=== PATIENT | female | born 1960 | race Caucasian/White ===

== ENCOUNTER 2023-03-19 07:18 | Day surgery (SDC) | payer OTHER, SELFPAY ==
[2023-03-19 07:46] VITALS: BP 114/73; PULSE 65; RESP 17; TEMP 36.6; O2SAT 98; BMI 18.9
[2023-03-19] MEDS: LACTATED RINGERS 1,000 ML 200 ML IV (08:02)
--- NOTE | 2023-03-19 08:09 | PM.HP.1 ---
History of Present Illness History of Present Illness Date Patient Seen: 03/19/23 Time Patient Seen: 08:09 Chief complaint: Colonoscopy Narrative: The patient presents for colorectal screening. She is a personal history of colonic polyps. Last colonoscopy was 5 years ago and negative for polyps at that time.. No personal or family history of colon cancer. On further history denies any recent gastrointestinal symptoms. No nausea, vomiting, abdominal pain, loss of appetite, unexplained weight loss, change in bowel habits, or blood per rectum. [facility] Medical History (Updated 03/19/23 @ 08:10 by Leonid Fu MD) Hypothyroid Social History household members: spouse Smoking Status: Never smoker alcohol intake: never Meds Home Medications and Allergies Home Medications Medication Instructions Recorded Confirmed Type sodium,potassium,mag sulfates 17.5 See Rx Instructions PO .COMPLEX 02/12/23 Rx gram-3.13 gram-1.6 gram oral soln #354 mL (Suprep Bowel Prep Kit) Lactobacillus acidophilus 1,000 mmu cells PO DAILY 03/19/23 03/19/23 History ascorbic acid (vitamin C) 500 mg 250 mg PO DAILY 03/19/23 03/19/23 History tablet (Vitamin C) flaxseed oil 1,000 mg capsule 1,000 mg PO TID 03/19/23 03/19/23 History levothyroxine 75 mcg tablet 75 mcg PO DAILY 03/19/23 03/19/23 History (Synthroid) magnesium citrate 100 mg capsule 100 mg PO DAILY 03/19/23 03/19/23 History multivitamin,ta-avui-sndosemb tab 03/19/23 History psyllium husk 3.4 gram/5.4 gram 1 tsp PO DAILY 03/19/23 03/19/23 History oral powder (Metamucil) rosuvastatin 20 mg tablet 20 mg PO DAILY 03/19/23 03/19/23 History vitamins A,C,G-riit-hzrsuy 2,148 2 tab PO BID 03/19/23 03/19/23 History mcg-113 mg-45 mg-17.4 mg tablet (PreserVision AREDS) Allergies Allergy/AdvReac Type Severity Reaction Status Date / Time amoxicillin Allergy Intermediate Nausea Verified 03/19/23 07:40 Penicillins Allergy Intermediate Nausea Verified 03/19/23 07:40 Exam Vital Signs (past 8 hours): - 03/19/23 07:46 Temperature 97.8 F Pulse Rate 65 Respiratory Rate 17 Blood Pressure 114/73 Pulse Oximetry 98 Oxygen Delivery Method Room Air Oxygen Delivery Method Room Air Narrative Exam Narrative: General adult woman alert oriented no acute distress Assessment & Plan Assessment and plan (1) Personal history of colonic polyps: Status: Acute Assessment & Plan narrative: The patient requires colorectal screening and colonoscopy is recommended. Technical details were discussed. Risks, benefits, alternatives explained. Risks including but not limited to myocardial infarction, aspiration, bleeding, pain, missed lesion, incomplete examination, need for further radiographic studies, colonic perforation, and need for major abdominal surgery were discussed. All questions were answered to their satisfaction, and they are in agreement with this plan.
[2023-03-19 09:15] VITALS: BP 102/62; PULSE 69; RESP 19; TEMP 36.6; O2SAT 100
--- NOTE | 2023-03-19 09:19 | PM.OP.COLON ---
Operative Date/Time/Diagnoses Date of procedure: 03/19/23 Time of procedure: 09:19 Pre-op diagnosis: Personal history of colonic polyps Post-op diagnosis: same Procedure & Clinicians Study performed: Colonoscopy Same procedure as scheduled: Yes Indications: Personal history of colonic polyps. Colorectal screening. Surgeon: Leonid Fu Procedure Notes Procedure in detail: The history and physical was performed/updated and the patient is ASA class is 2. The procedure was discussed in detail with the patient. Potential risks complications including infection, bleeding, missed diagnosis, perforation, need for surgery, and were explained. Their questions were answered and informed consent was obtained. Patient was brought to the procedure room and placed standard monitoring equipment. The patient's vital signs were monitored continuously throughout the entire procedure. Prior to starting time-out was performed. The patient was placed in the left lateral recumbent position. Procedural sedation was administered by anesthesia. Examination began with a thorough inspection of the perianal area there was no evidence of fissures, fistulae, external hemorrhoids or cutaneous malignancy. The colonoscopy scope was then placed into the anal canal and was advanced to the cecum, which was identified by the ileocecal valve, the appendiceal orifice and the confluence of the taenia. The scope was then slowly withdrawn examining colon thoroughly in all directions, irrigating it of any residual stool. Colon was largely unremarkable. No masses or polyps were identified. The colon was notable only for tortuosity in the proximal colon requiring scope stiffener and manual external compression. The patient tolerated the procedure well. They will be discharged once criteria are met. The prep was of good/excellent quality. The withdrawl time was 6 minutes. Specimen(s): none sent Impression: Normal colonoscopy Post-procedure Recommendations: Colonoscopy in 10 years Disposition: same day surgery
[2023-03-19 09:21] VITALS: BP 106/59; PULSE 67; RESP 17; TEMP 36.6; O2SAT 100
[2023-03-19 09:25] VITALS: BP 105/65; PULSE 64; RESP 15; TEMP 36.6; O2SAT 100
[2023-03-19 09:36] VITALS: BP 128/85; PULSE 78; RESP 12; TEMP 36.6; O2SAT 96
== END 2023-03-19 09:54 | disposition home or self-care (01) ==
PROVIDERS: PCP Physician Assistant Medical; Referring Provider Surgery; Visit Provider Surgery
PROC: 0DJD8ZZ Inspection of Lower Intestinal Tract, Via Natural or Artificial Opening Endoscopic (ICD-10-PCS; CPT 45378; principal; 2023-03-19 08:45)
DX: Z12.11 Encounter for screening for malignant neoplasm of colon (principal); Z86.010 Personal history of colon polyps
CPT/HCPCS: 45378; J2250; J3010

== ENCOUNTER → 2025-04-07 09:04 | Outpatient (CLI) | payer MEDICARE, OTHER, SELFPAY ==
--- NOTE | 2025-04-07 09:38 | EKG_ITS ---
[address] [address] [place] [address] Test Date: 2025-04-07 Pat Name: Pili Tellez Department: [facility] Room: Gender: Female [employer]visor [employer]: ELIJAH : 1960 Requested By: Order Number: [id number] Reading MD: Juan Zapata MD Measurements Intervals [place] Rate: 63 P: 31 IN: 160 QRS: 251 QRSD: 90 T: 65 QT: 380 QTc: 388 Interpretive Statements Sinus rhythm with premature atrial complexes Right superior axis deviation Low voltage QRS Nonspecific T wave abnormality NO PRIOR TRACING Electronically Signed On 04-07-2025 10:51:40 PDT by Juan Zapata MD
== END ==
LOC: RESP 09:07
PROVIDERS: PCP Student in an Organized Health Care Education/Training Program; Referring Provider Student in an Organized Health Care Education/Training Program; Visit Provider Student in an Organized Health Care Education/Training Program
DX: I49.3 Ventricular premature depolarization (principal)
CPT/HCPCS: 93005

== ENCOUNTER → 2025-04-26 09:29 | Outpatient (CLI) | payer MEDICARE, OTHER, SELFPAY | LOC: CAR 09:30 | PROVIDERS: PCP Student in an Organized Health Care Education/Training Program; Referring Provider Student in an Organized Health Care Education/Training Program; Visit Provider Student in an Organized Health Care Education/Training Program | DX: I49.9 Cardiac arrhythmia, unspecified (principal) | CPT/HCPCS: 93246 ==

== ENCOUNTER → 2025-05-12 10:52 | Outpatient (CLI) | payer MEDICARE, OTHER, SELFPAY ==
--- NOTE | 2025-05-12 10:53 | DI.MG.S_ITS ---
MM screening mammo BI: 05/12/2025. BI-RADS: 1 CLINICAL: 64-year old female for bilateral screening mammogram. Tyrer-Cuzick lifetime risk of 8.0%. No personal or first-degree family history of breast cancer. PRIOR EXAMS 05/11/2024, 05/07/2023, 05/01/2022, 03/13/2021. MAMMOGRAPHY TECHNIQUE: 2D and 3D (tomosynthesis) digital mammographic views obtained, with additional images as needed for full coverage. Current study was also evaluated with a Computer Aided Detection (CAD) system. DENSITY C. The breasts are heterogeneously dense, which may obscure small masses. MAMMOGRAPHY FINDINGS Bilateral: No suspicious mass, asymmetry, microcalcification, or other abnormality seen. No significant change from comparison. IMPRESSION: * No evidence of malignancy. RECOMMENDATIONS Bilateral * Annual screening mammography. OVERALL ASSESSMENT CATEGORY BI-RADS-1: Negative. The [employer] recommends annual screening mammography beginning at age 40 for women with average risk of breast cancer. ELECTRONICALLY SIGNED: Milla Thompson M.D. on 05/15/2025 at 01:31:55 PM PT Interpreting Station ID: [id number]
== END ==
PROVIDERS: PCP Student in an Organized Health Care Education/Training Program; Referring Provider Student in an Organized Health Care Education/Training Program; Visit Provider Student in an Organized Health Care Education/Training Program
DX: Z12.31 Encounter for screening mammogram for malignant neoplasm of breast (principal); R92.333 Mammographic heterogeneous density, bilateral breasts
CPT/HCPCS: 77063; 77067

== ENCOUNTER → 2025-08-25 07:52 | Outpatient (CLI) | payer MEDICARE, OTHER, SELFPAY ==
--- NOTE | 2025-08-25 07:53 | DI.ECHO.S_ITS ---
[place] [facility]---------+ [facility] : : [address] : : [place] : : [id number] : : Phone: [phone] Echocardiogram Report + + :Name: DOMINIC BLACKWELL Study Date: 08/25/2025 Height: 67 in : :[facility] ReadingLocation: Weight: 126 lb : : Gender: Female BSA: 1.7 m2 : :: 1960 Age: 65 yrs BP: 104/76 mmHg: :Reason For Study: CARDIAC ARRHYTHMIA : :Ordering Physician: EDSON CHILDERS Performed By: Abdullahi Vela : :Referring: EDSON CHILDERS : + + Interpretation Summary PT DECLINED CONTRAST FOR LV APEX DEFINITION - The left ventricular contractility is normal. Estimated ejection fraction is greater than 60% with no segmental wall motion abnormalities. No LVH. Normal diastolic function. - The right ventricular contractility is normal. - All cardiac chambers are of normal size. - No significant valvular abnormalities. - No obvious intracardiac shunts. - No obvious intracardiac masses nor thrombi. There was a focal hyperechogenic nodule noted in the left ventricular apex. No prominent trabeculation noted. This is of unclear significance. - No hemodynamically significant pericardial effusion. - Low right-sided filling pressures. Conclusion: Normal biventricular function with no significant valvular abnormalities. Hyperechogenic nodule in the left ventricular apex of unclear significance. Procedure: A two-dimensional transthoracic echocardiogram with color flow and Doppler was performed. The study quality was technically good. There is no prior echocardiogram noted for this patient. The patient was in normal sinus rhythm during the exam. The patient had occasional PACs during the exam. Left Ventricle: The left ventricle is normal in size. There is normal left ventricular wall thickness. There is no ventricular septal defect visualized. The ejection fraction is estimated to be 55-60%. There are no focal wall motion abnormalities. Normal diastolic function. Right Ventricle: The right ventricle is normal in size and function. Atria: The left atrial size is normal. Right atrial size is normal. There is no Doppler evidence for an interatrial shunt. Mitral Valve: The mitral valve leaflets are slightly calcified. There is trace mitral regurgitation. Aortic Valve: The aortic valve is trileaflet. The aortic valve opens well. No aortic regurgitation is present. Tricuspid Valve: The tricuspid valve leaflets are thin and pliable. There is a trace or physiologic amount of tricuspid regurgitation. Pulmonic Valve: The pulmonic valve is not well visualized. There is trace pulmonic regurgitation. Great Vessels: The aortic root is normal size. The dimensions of the ascending aorta are normal. The pulmonary artery is not well visualized, but is probably normal size. The IVC is of normal diameter and collapses greater than 50% with a sniff. This suggests a low right atrial pressure of 3 mm Hg. Pericardium/ Pleura There is no pericardial effusion. There is no pleural effusion. MMode/2D Measurements & Calculations LVIDd: 4.3 cm LVOT diam: 2.0 cm LVIDs: 3.1 cm Ao root diam: 3.1 cm FS: 28.0 % asc Aorta Diam: 3.0 cm EPSS: 0.52 cm IVSd: 0.87 cm LVPWd: 0.80 cm LV moralez. diameter/BSA (cm/m^2): 2.6 LV sys. diameter/BSA (cm/m^2): 1.9 LA A2 area: 15.0 cm2 RA long axis: 4.4 cm LA A4 area: 15.0 cm2 RA area: 13.9 cm2 LA length (vol): 4.4 cm RA vol: 36.7 ml LA vol: 43.8 ml RA : 22.1 ml/m2 LA vol index: 26.3 ml/m2 IVC diam: 1.9 cm RVD1 (basal): 3.0 cm RVD2 (mid): 2.2 cm TAPSE: 3.1 cm Doppler Measurements & Calculations Ao V2 max: 120.8 cm/sec LVOT Max Shahzad: 94.8 cm/sec Ao V2 mean: 85.4 cm/sec LV V1 max P.6 mmHg Ao max P.8 mmHg LV V1 VTI: 22.3 cm Ao mean P.2 mmHg FELIPA(I,D): 2.8 cm2 Ao V2 VTI: 26.0 cm FELIPA(V,D): 2.5 cm2 sev ratio: 0.86 FELIPA indexed to BSA (cm^2/m^2): 1.7 MV E max shahzad: 52.2 cm/sec TR max shahzad: 205.4 cm/sec MV A max shahzad: 80.8 cm/sec TR max P.9 mmHg MV E/A: 0.65 PA V2 max: 86.7 cm/sec Med Peak E' Shahzad: 8.1 cm/sec PA V2 mean: 62.8 cm/sec E/E' med: 6.5 PA mean P.7 mmHg Lat Peak E' Shahzad: 8.1 cm/sec PA pr(Accel): 53.3 mmHg E/E' lat: 6.4 E/e' average: 6.4 MV dec time: 0.22 sec SV(OT): 72.3 ml Reading Physician:KELECHI
== END ==
LOC: ECHO 07:52
PROVIDERS: PCP Student in an Organized Health Care Education/Training Program; Referring Provider Internal Medicine; Visit Provider Internal Medicine
DX: I49.1 Atrial premature depolarization (principal)
CPT/HCPCS: 93306

== ENCOUNTER → 2025-09-09 06:51 | Outpatient (CLI) | payer MEDICARE, OTHER, SELFPAY ==
[2025-09-09 08:28] LABS: HEMOLYSIS < 15 (0-50); Iron 102 ug/dL (37-170)
[2025-09-09 08:40] LABS: Percent Iron Saturation 33 % (15-50); Total Iron Binding Capacity 309 ug/dL (265-497); Transferrin 267 mg/dL (206-381)
[2025-09-09 10:02] LABS: Ferritin 56 ng/mL (11-264)
== END ==
PROVIDERS: PCP Student in an Organized Health Care Education/Training Program; Referring Provider Nurse Practitioner; Visit Provider Nurse Practitioner
DX: E83.10 Disorder of iron metabolism, unspecified (principal); G25.81 Restless legs syndrome
CPT/HCPCS: 36415; 82728; 83540; 83550